=== PATIENT | male | born 1970 | race Caucasian/White ===

== ENCOUNTER 2016-10-02 18:30 | Emergency (ER) | payer BC, OTHER ==
[2016-10-02] MEDS ORDERED: Lidocaine 1% 20 ML MDV ONE (18:47)
[2016-10-02] MEDS ORDERED: Sulfameth/Trimethoprim DS 800-160mg TAB ONE (19:08)
== END 2016-10-02 19:15 | disposition home or self-care (01) ==
LOC: NAV ERS 18:30
DX: L02.02 Furuncle of face (principal); K21.9 Gastro-esophageal reflux disease without esophagitis; F17.210 Nicotine dependence, cigarettes, uncomplicated; Z79.899 Other long term (current) drug therapy
CPT/HCPCS: 99283; J2001